=== PATIENT | male | born 1950 | race Caucasian/White ===

== ENCOUNTER 2024-08-25 08:14 | Emergency (ER) | payer MEDICARE, SELFPAY ==
[2024-08-25 08:17] VITALS: BP 124/71
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
[2024-08-25 09:41] LABS: % Basophils 0.3 % (0-2); % Eosinophils 0.4 % (0-6); % Immature Granulocytes 0.3 % (0-0.5); % Lymphocytes 10.3 % (20.5-51.1); % Monocytes 7.9 % (1.7-9.3); % Neutrophils 80.8 % (42.2-75.2); Absolute Lymphocytes 0.8 10^3/uL (1.2-3.4); Absolute Monocytes 0.6 10^3/uL (0.1-0.6); Absolute Neutrophils 6.4 10^3/uL (1.4-6.5); Hematocrit 36.9 % (39.0-52.0); Hemoglobin 11.6 g/dL (13.0-18.0); Mean Corp Hgb Conc. 31.4 g/dL (33.0-37.0); Mean Corpuscular Hgb 27.7 pg (27.0-31.0); Mean Corpuscular Volume 88.1 fL (80.0-94.0); Mean Platelet Volume 9.9 fL (7.4-10.4); Nucleated Red Blood Cells % 0 % (-); Platelet Count 169 10^3/uL (130-400); Red Blood Cell Count 4.19 10^6/uL (4.70-6.10); Red Cell Dist. Width 14.4 % (11.5-14.5)
[2024-08-25 09:48] LABS: ALT (SGPT) 21 U/L (0-50); AST (SGOT) 23 U/L (17-59); Alkaline Phosphatase 80 U/L (38-126); Blood Urea Nitrogen 18 mg/dl (9-20); Carbon Dioxide 28 mmol/L (22-30); Chloride 105 mmol/L (98-107); Glucose 102 mg/dl (70-99); Potassium 4.1 mmol/L (3.5-5.1); Sodium 142 mmol/L (135-145); Total Bilirubin 0.6 mg/dl (0.2-1.3); eGFR > 60.00
[2024-08-25 09:50] LABS: Alcohol None Detected
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
[2024-08-25 12:51] VITALS: BP 124/71
[2024-08-25 16:48] VITALS: BP 122/72
[2024-08-25 20:15] LABS: Urine Albumin Trace (Neg - Trace); Urine Bilirubin Negative (Negative); Urine Character Clear (Clear); Urine Color Yellow; Urine Glucose Negative (Negative); Urine Ketone Trace (Negative); Urine Leukocyte Negative (Negative); Urine Nitrite Negative (Negative); Urine Occult Blood Negative (Negative); Urine Specific Gravity 1.015 (<1.030); Urine Urobilinogen Negative (Neg - 1+); Urine pH 6.5 (5.0-9.0)
[2024-08-25 20:22] LABS: Amphetamines Negative (Negative); Barbiturates Negative (Negative); Benzodiazepines Positive (Negative); Buprenorphine Negative (Negative); Cocaine Negative (Negative); Marijuana Negative (Negative); Methadone Negative (Negative); Methamphetamines Negative (Negative); Opiates Negative (Negative); Phencyclidine Negative (Negative); Tricyclic Antidepressants Negative (Negative)
[2024-08-25 20:40] LABS: Fentanyl, Urine Negative (Negative)
[2024-08-26 04:40] VITALS: BP 114/67
[2024-08-26 07:41] VITALS: BP 143/88
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
== END 2024-08-26 14:23 ==
LOC: EMR 08:14
PROVIDERS: CONSULT PHYSICIAN Psychiatry & Neurology Psychiatry; EMERGENCY PHYSICIAN Emergency Medicine
DX: F29 Unspecified psychosis not due to a substance or known physiological condition (principal); F41.9 Anxiety disorder, unspecified; S30.1XXA Contusion of abdominal wall, initial encounter; S90.111A Contusion of right great toe without damage to nail, initial encounter; V47.5XXA Car driver injured in collision with fixed or stationary object in traffic accident, initial encounter; I11.0 Hypertensive heart disease with heart failure; I50.9 Heart failure, unspecified; J45.909 Unspecified asthma, uncomplicated; Z65.3 Problems related to other legal circumstances; F28 Other psychotic disorder not due to a substance or known physiological condition; Z79.899 Other long term (current) drug therapy
CPT/HCPCS: 99285; 70450; 71046; 72125; 73630; 80053; 80306; 80307; 81003; 82077; 85025

== ENCOUNTER 2024-10-14 10:01 | Emergency (ER) | payer MEDICARE, SELFPAY ==
[2024-10-14 10:12] VITALS: BP 115/48
--- NOTE | 2024-10-14 11:03 | ED.GENMED ---
History of Present Illness
General
Chief Complaint: Weakness
Source: patient
Exam Limitations: none
Time Seen by Provider: 10/14/24 10:59
Nursing documentation reviewed up to this point in time: agreed with
History of Present Illness
History of Present Illness:
74-year-old male with history of CHF, GERD, ADHD, anxiety/depression, defibrillator, presents with a thick packet of previous hospitalizations and lab reports saying 'I am not walking real good, I am stumbling' his legs are weak and he is concerned
about his arsenic level.
He has rec from March, June and August when he was admitted to the hospital, requesting that I look through all his records and inform him of what is abnormal, brief review of all the lab results reveal nothing needing urgent addressing. On
04/29/2024 his total urine arsenic level was 35 UG per liter and it should be less than 20.0 according to the lab report
On 06/23/2024 lab report he had a heavy metal panel again of his urine and the arsenic total was 14, normal is 0-9 UG/L, negative for lead or mercury.
Past History
Past History
ED Past Medical History: Asthma, CAD, CHF, [place], Psychiatric (Anxiety, depression, ADHD), Other (Encephalopathy) and Other (Behavior related cognitive impairment)
ED Past Surgical History: Cardiac (Pacemaker, defibrillator), Orthopedic (Left hip replacement) and Urological (Prostate cancer with radical prostatectomy)
Social History
Tobacco: Non-smoker
Alcohol: Occasional
Drug: None
Personal: Single
Living: alone
Employment: Other
Family History
Family History: Other
Review of Systems
Review of Systems
Allergies reviewed?: Yes
All Other Systems: ROS reviewed and negative except as documented in HPI and ROS
Constitutional: Denies fever or fatigue
Respiratory: Denies cough or trouble breathing
Cardiac: Denies chest pain
ABD/GI: Denies abdominal pain, nausea, vomiting, diarrhea or anorexia
: Denies dysuria, frequency or difficulty voiding
Musculoskeletal: Reports no symptoms
Skin: Reports no symptoms
Neurological: Reports weakness (legs feel weak); Denies dizzy, headache or numbness
Phy Exam
Physical Exam
Physical Exam:
GENERAL: No acute distress. A&Ox3.
CONSTITUTIONAL: Afebrile.
EYES: clear, conjunctivae normal
ENMT: moist mucus membranes, Pharynx nl
RESPIRATORY: Regular respirations, nonlabored, lungs clear.
CARDIOVASCULAR: Regular rate and rhythm, no murmurs, no rubs.
GI: Soft, nontender, normal BS
MUSCULOSKELETAL: Moves with ease. Well perfused. No edema. Patient ambulating mildly unsteadily with a shuffling gait.
SKIN: Warm, dry, pink
PSYCH: Normal mood and affect. Well kept, interactive, ruminating, obsessing over his pile of medical records and lab results.
NEUROLOGIC: Awake, alert and oriented. No focal neurological deficits. Bilateral lower extremity edema 5/5, strength equal throughout.
Course
Orders/Labs/Results
Orders:
Orders
10/14/24 11:39
Crisis Consult Urgent
Reason for Consult: paranoid, obsessing over lab results,
Comment: please speak with his friend who is with him
10/14/24 12:22
Complete Blood Count/With Diff Urgent
10/14/24 13:11
Comprehensive Metabolic Panel Urgent
Abnormal Lab Results
10/14/24 10/14/24
12:22 13:11
WBC 11.5 H 10^3/uL
(4.8-10.8)
RBC 4.16 L 10^6/uL
(4.70-6.10)
Hgb 11.4 L g/dL
(13.0-18.0)
Hct 34.5 L %
(39.0-52.0)
MPV 11.3 H fL
(7.4-10.4)
Abs Immat Gran (auto) 0.1 H 10^3/uL
(0-0.05)
Absolute Neuts (auto) 9.1 H 10^3/uL
(1.4-6.5)
Absolute Monos (auto) 1.1 H 10^3/uL
(0.1-0.6)
Neutrophils % 79.2 H %
(42.2-75.2)
Lymphocytes % 10.2 L %
(20.5-51.1)
Monocytes % 9.5 H %
(1.7-9.3)
BUN 32 H mg/dl
(9-20)
Creatinine 1.6 H mg/dL
(0.7-1.3)
Glucose 101 H mg/dl
(70-99)
10/14/24 12:22
10/14/24 13:11
Vital Signs
Initial and Last Documented VS:
Initial Vital Signs
Temp Pulse Resp BP Pulse Ox
99.2 F 85 20 115/48 99
10/14/24 10:12 10/14/24 10:12 10/14/24 10:12 10/14/24 10:12 10/14/24 10:12
Last Documented Vital Signs
Temp Pulse Resp BP Pulse Ox
98.9 F 82 17 123/71 99
10/14/24 14:51 10/14/24 14:51 10/14/24 14:51 10/14/24 14:51 10/14/24 14:51
MDM/Problems Addressed
MDM/Problems Addressed:
74-year-old male with history of CHF, GERD, ADHD, anxiety/depression, defibrillator, presents with a thick packet of previous hospitalizations and lab reports saying 'I am not walking real good, I am stumbling' his legs are weak and he is concerned
about his arsenic level.
He has rec from March, June and August when he was admitted to the hospital, requesting that I look through all his records and inform him of what is abnormal, brief review of all the lab results reveal nothing needing urgent addressing. On
04/29/2024 his total urine arsenic level was 35 UG per liter and it should be less than 20.0 according to the lab report
On 06/23/2024 lab report he had a heavy metal panel again of his urine and the arsenic total was 14, normal is 0-9 UG/L, negative for lead or mercury.
Afebrile, NAD
Young man with patient, allowing him to stay at his home states pt is constantly obsessing over his health, won't believe anything doctors tell him, he has been paranoid, he has restraint out for being violent with x-, he is frustrated that he
offered to help him, allowing him to stay with him (they used to be neighbors) and now does not know what to do with him.
Pt has no signs of acute arsenic poisoning, no paresthesias or neuropathy in hands or feet. No respiratory, GI or cardiac or respiratory symptoms. No skin lesions
CBC and CMP are unremarkable.
Pt reassured.
Crisis in and spoke with pt and his friend. Information on homelessness provided if needed
*Critical Care Note
Total Time (30-74mins, 75-104mins- exclusive of procedures): Not Applicable
ED Attending Note
-
Portions of this chart may have been created with voice recognition software.� Occasional wrong word or��sound alike� substitutions may have occurred due to the inherent limitations of voice recognition software.
Discharge Plan
Departure
Patient Disposition: Home (Routine Discharge)
Date of Disposition: 10/14/24
Time of Disposition: 14:49
Patient with high blood pressure during this ER visit?: No
Condition: Good
Discharge Problem:
Anxiety about health, Muscular deconditioning, Lower extremity weakness
Instructions: Active Range of Motion Exercises, Back and Hips, Active Range of Motion Exercises, Knees and Ankles, Strengthening Your Lower Body and Core, Arsenic Trioxide, Standing Balance Exercises, Beginner, Lower Extremity Exercises Seated,
Anxiety in adults - ED discharge instructions
Referrals:
NONE,* [Family Provider] -
Activity Restrictions/Additional Instructions:
As we discussed, the weakness in your leg is most likely from being deconditioned from your recent several hospitalizations. Increase your walking, I have provided you with exercises to do to strengthen your legs.
There is nothing worrisome in your workup here today.
You have no symptoms of arsenic poisoning, your liver function test is normal.
Interventions
Interventions:
*Risk Screen - Suicide Last Done: 10/14/24 10:12
*General Assessment Last Done: 10/14/24 10:12
*Neglect/Abuse Screening Last Done: 10/14/24 10:12
*ED COVID-19 Vaccine History Last Done: 10/14/24 12:00
*Nursing Disposition Last Done: 10/14/24 15:15
ED- Neurological Assessment Last Done: 10/14/24 12:00
ED- Pulmonary Assessment Last Done: 10/14/24 12:00
Discharge Date and Time
Discharge Date/Time: 10/14/24 15:15
Print Language: WOLOF
[2024-10-14 12:39] LABS: % Basophils 0.1 % (0-2); % Eosinophils 0.5 % (0-6); % Immature Granulocytes 0.5 % (0-0.5); % Lymphocytes 10.2 % (20.5-51.1); % Monocytes 9.5 % (1.7-9.3); % Neutrophils 79.2 % (42.2-75.2); Absolute Eosinophils 0.1 10^3/uL (0-0.7); Absolute Immature Granulocytes 0.1 10^3/uL (0-0.05); Absolute Lymphocytes 1.2 10^3/uL (1.2-3.4); Absolute Monocytes 1.1 10^3/uL (0.1-0.6); Absolute Neutrophils 9.1 10^3/uL (1.4-6.5); Hematocrit 34.5 % (39.0-52.0); Hemoglobin 11.4 g/dL (13.0-18.0); Mean Corpuscular Hgb 27.4 pg (27.0-31.0); Mean Corpuscular Volume 82.9 fL (80.0-94.0); Nucleated Red Blood Cells % 0 % (-); Red Blood Cell Count 4.16 10^6/uL (4.70-6.10); Red Cell Dist. Width 13.7 % (11.5-14.5); White Blood Cell Count 11.5 10^3/uL (4.8-10.8)
[2024-10-14 13:29] LABS: Mean Platelet Volume 11.3 fL (7.4-10.4)
[2024-10-14 13:30] LABS: Platelet Count 170 10^3/uL (130-400)
[2024-10-14 13:52] LABS: ALT (SGPT) 19 U/L (0-50); AST (SGOT) 23 U/L (17-59); Albumin 4.5 g/dl (3.5-5.0); Alkaline Phosphatase 96 U/L (38-126); Blood Urea Nitrogen 32 mg/dl (9-20); Calcium 9.4 mg/dl (8.4-10.2); Carbon Dioxide 23 mmol/L (22-30); Chloride 101 mmol/L (98-107); Glucose 101 mg/dl (70-99); Potassium 4.7 mmol/L (3.5-5.1); Sodium 137 mmol/L (135-145); Total Bilirubin 1.3 mg/dl (0.2-1.3); Total Protein 6.6 g/dl (6.3-8.2); eGFR 44.93
[2024-10-14 14:51] VITALS: BP 123/71
== END 2024-10-14 15:15 | disposition home or self-care (01) ==
LOC: EMR 10:01
PROVIDERS: Registered Nurse; EMERGENCY PHYSICIAN Emergency Medicine
DX: F41.9 Anxiety disorder, unspecified (principal); R53.1 Weakness; I50.9 Heart failure, unspecified; I25.10 Atherosclerotic heart disease of native coronary artery without angina pectoris; K21.9 Gastro-esophageal reflux disease without esophagitis; F90.9 Attention-deficit hyperactivity disorder, unspecified type; Z85.46 Personal history of malignant neoplasm of prostate; Z90.79 Acquired absence of other genital organ(s); Z95.0 Presence of cardiac pacemaker
CPT/HCPCS: 99283; 80053; 85025

== ENCOUNTER 2024-10-15 11:07 | Emergency (ER) | payer MEDICARE, SELFPAY ==
[2024-10-15 11:12] VITALS: BP 126/90
[2024-10-15 12:18] LABS: % Basophils 0.2 % (0-2); % Immature Granulocytes 0.4 % (0-0.5); % Lymphocytes 5.9 % (20.5-51.1); % Monocytes 6.4 % (1.7-9.3); % Neutrophils 87.1 % (42.2-75.2); Absolute Lymphocytes 0.6 10^3/uL (1.2-3.4); Absolute Monocytes 0.6 10^3/uL (0.1-0.6); Absolute Neutrophils 8.7 10^3/uL (1.4-6.5); Hematocrit 31.4 % (39.0-52.0); Hemoglobin 10.4 g/dL (13.0-18.0); Mean Corp Hgb Conc. 33.1 g/dL (33.0-37.0); Mean Corpuscular Hgb 27.6 pg (27.0-31.0); Mean Corpuscular Volume 83.3 fL (80.0-94.0); Mean Platelet Volume 10.1 fL (7.4-10.4); Nucleated Red Blood Cells % 0 % (-); Platelet Count 171 10^3/uL (130-400); Red Blood Cell Count 3.77 10^6/uL (4.70-6.10); Red Cell Dist. Width 13.6 % (11.5-14.5)
[2024-10-15 12:32] LABS: ALT (SGPT) 34 U/L (0-50); AST (SGOT) 36 U/L (17-59); Albumin 4.2 g/dl (3.5-5.0); Alkaline Phosphatase 131 U/L (38-126); Blood Urea Nitrogen 41 mg/dl (9-20); Carbon Dioxide 20 mmol/L (22-30); Chloride 101 mmol/L (98-107); Glucose 87 mg/dl (70-99); Potassium 4.8 mmol/L (3.5-5.1); Sodium 136 mmol/L (135-145); Total Bilirubin 1.1 mg/dl (0.2-1.3); Total Protein 6.2 g/dl (6.3-8.2); eGFR 39.01
[2024-10-15 13:01] LABS: Alcohol None Detected; TSH Reflex To Free T4 0.29 uIU/ml (0.47-4.68)
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
[2024-10-15 14:20] LABS: Free T4 1.34 ng/dl (0.78-2.19)
[2024-10-15] MEDS: ATIVAN 2 MG IM (14:30)
[2024-10-15] MEDS: HALDOL 5 MG IM (14:32)
[2024-10-15 15:10] LABS: Folate > 20.0 ng/ml (2.76-20); Vitamin B12 574 pg/ml (239-931)
[2024-10-15 15:40] LABS: Urine Albumin Trace (Neg - Trace); Urine Bilirubin Negative (Negative); Urine Character Clear (Clear); Urine Color Yellow; Urine Glucose Negative (Negative); Urine Ketone 3+ (Negative); Urine Leukocyte Negative (Negative); Urine Nitrite Negative (Negative); Urine Occult Blood Negative (Negative); Urine Specific Gravity 1.025 (<1.030); Urine Urobilinogen Negative (Neg - 1+)
[2024-10-15 16:18] LABS: Amphetamines Negative (Negative); Barbiturates Negative (Negative); Benzodiazepines Positive (Negative); Buprenorphine Negative (Negative); Cocaine Negative (Negative); Marijuana Negative (Negative); Methadone Negative (Negative); Methamphetamines Negative (Negative); Opiates Negative (Negative); Phencyclidine Negative (Negative); Tricyclic Antidepressants Negative (Negative)
[2024-10-15 16:29] LABS: Fentanyl, Urine Negative (Negative)
[2024-10-16 09:23] VITALS: BP 137/81
[2024-10-16] MEDS: ATIVAN 1 MG PO (09:23)
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
--- NOTE | 2024-10-16 11:55 | PHANOTE ---
med rec note- called patient pharmacy to obtain medication, patient has no ecw and pharmacy does not link to computer since it is through [place]. patient pharmacy last filled Plavix 75mg daily and metoprolol in january of 2024. no family for
patient
--- NOTE | 2024-10-16 12:02 | ED.CRISIS ---
ED Crisis Note
ED Crisis Note
Subjective:
Patient here on 302 for mehnaz with psychotic features.
Objective:
Resting comfortably in bed not in any distress. Vital signs stable.
Assessment/Plan:
74-year-old male here on a 302 for mehnaz with psychotic features. Psychiatry following. No placement today, plan for 303 hearing tomorrow. He was given some Ativan this morning for agitation.
[2024-10-16 17:01] VITALS: BP 117/68
[2024-10-17 09:09] VITALS: BP 122/73
--- NOTE | 2024-10-17 11:25 | CM ---
CM is providing assistance with transportation via Lyft to patient's home.
--- NOTE | 2024-10-17 12:22 | W.PN.UPDATE ---
Update Note
Progress Note Update
patient seen chart reviewed. a 303 commitment hearing was held today. the patient would not agree to hospitalization and he was released by the information assurance officer . i did discuss with him my recommendations for his medication which would be a mood
stabilizer/antipsychotic but he will return to his psychiatrist dr lloyd and go from there. he asked me how to evict his roommate. i told him i could not health counselor him on how to evict a tenant and he should contact legal support analyst
== END 2024-10-17 11:25 | disposition home or self-care (01) ==
LOC: EMR 11:07
PROVIDERS: EMERGENCY PHYSICIAN Emergency Medicine; OTHER PHYSICIAN Psychiatry & Neurology Psychiatry
DX: F30.2 Manic episode, severe with psychotic symptoms (principal); D64.9 Anemia, unspecified; N28.9 Disorder of kidney and ureter, unspecified; R45.6 Violent behavior; R47.81 Slurred speech; R45.89 Other symptoms and signs involving emotional state; V49.3XXA Car occupant (driver) (passenger) injured in unspecified nontraffic accident, initial encounter; Y92.009 Unspecified place in unspecified non-institutional (private) residence as the place of occurrence of the external cause; Z65.3 Problems related to other legal circumstances; I25.10 Atherosclerotic heart disease of native coronary artery without angina pectoris; I50.9 Heart failure, unspecified; F41.9 Anxiety disorder, unspecified; F32.A Depression, unspecified; F90.9 Attention-deficit hyperactivity disorder, unspecified type; J45.909 Unspecified asthma, uncomplicated; I25.2 Old myocardial infarction; Z95.0 Presence of cardiac pacemaker; Z85.46 Personal history of malignant neoplasm of prostate; Z96.642 Presence of left artificial hip joint; Z90.79 Acquired absence of other genital organ(s)
CPT/HCPCS: 99285; 96372 ×2; 80053; 80306; 80307; 81003; 82077; 82607; 82746; 84439; 84443; 85025

== ENCOUNTER 2025-01-25 16:05 | Emergency (ER) | payer MEDICARE, SELFPAY ==
[2025-01-25 16:23] VITALS: BP 98/65
--- NOTE | 2025-01-25 17:43 | ED.GENMED ---
History of Present Illness
General
Chief Complaint: Crisis Evaluation
Time Seen by Provider: 01/25/25 16:34
History of Present Illness
History of Present Illness:
74-year-old male with history of CHF, alcohol abuse, hypertension, hyperlipidemia presenting to the emergency department under 302, filled out by police. Patient was allegedly found in the street, uncooperative. Per 302, patient is unable to care
for himself, lives at home by himself. He has also been having some paranoia and hallucinations patient had allegedly been admitted to [facility] yesterday, admitted for failure to care for self, however signed out AGAINST MEDICAL
ADVICE. Per records at [facility] by [place], patient was admitted, with history that patient had fallen down the steps 4 days ago, history of frequent falls. Patient had CT of his head and C-spine that was negative for acute process. He
also negative chest x-ray. Patient has been complaining of rib pain, suffered some rib fractures several weeks ago after a fall. Patient also noted to have metacarpal fractures. Patient was accompanied by his neighbor who expressed concern for
his wellbeing. Patient at this time notes that he was laying in the street because he forgot his phone and was trying to get into his house, knocking on neighbors doors. He reports bilateral rib pain and left hand pain. Denies any additional
acute falls. Denies SI or HI
Past History
Past History
ED Past Medical History: Asthma, CAD, CHF, [place], Psychiatric (Anxiety, depression, ADHD), Other (Encephalopathy) and Other (Behavior related cognitive impairment)
ED Past Surgical History: Cardiac (Pacemaker, defibrillator), Orthopedic (Left hip replacement) and Urological (Prostate cancer with radical prostatectomy)
Social History
Tobacco: Non-smoker
Alcohol: Occasional
Drug: None
Personal: Single
Living: alone
Employment: Other
Family History
Family History: Other
Phy Exam
Physical Exam
Physical Exam:
General: Well-appearing, no clinical signs of dehydration, nontoxic and in no acute distress
HEENT: protecting airway
Neck: appears supple
CV: Normal heart rate, regular rhythm
Resp: No accessory muscle use, no increased work of breathing
Abd: No distention or tenderness on palpation
Extremities: Swelling and ecchymosis to the left hand with limited range of motion secondary to pain.
Neuro: alert, no focal neurologic deficit
: deferred
Rectal: deferred
Psych: Normal affect
Skin: Intact
Course
Orders/Labs/Results
Orders:
Orders
01/25/25 17:05
Urine Drug Abuse Screen Urgent
Date Specimen was Collected: 01/26/25
Time Specimen was Collected: 02:06
CR Chest - 2 Views Urgent
Comment:
Reason For Exam: rib pain
Hand, Left 3 View [CR Hand - Left Min 3 Views] Urgent
Comment:
Reason For Exam: swelling, bruising
Wrist, Left 3 Views CR [CR Wrist - Left Min 3 Views] Urgent
Comment:
Reason For Exam: pain
01/25/25 17:36
Crisis Consult Urgent
Reason for Consult: 302
01/25/25 18:59
One to One Observation - Suicide/Violent [1:1 Observation - Suicide/ Violent Behavior] As Directed
01/25/25 19:34
Alcohol Urgent
Complete Blood Count/With Diff Urgent
Comprehensive Metabolic Panel Urgent
01/26/25 02:10
Fentanyl, Urine Urgent
01/26/25 08:29
Splints/Slings/Crut- Treatment ONCE
Location: Left
Type of Splint: Ulnar Gutter
01/26/25 08:30
Acetaminophen [Tylenol] 1,000 mg PO NOW STA
Abnormal Lab Results
01/25/25 01/26/25
19:34 02:10
RBC 4.35 L 10^6/uL
(4.70-6.10)
Hgb 10.2 L g/dL
(13.0-18.0)
Hct 32.7 L %
(39.0-52.0)
MCV 75.2 L fL
(80.0-94.0)
MCH 23.4 L pg
(27.0-31.0)
MCHC 31.2 L g/dL
(33.0-37.0)
RDW 17.8 H %
(11.5-14.5)
MPV 10.9 H fL
(7.4-10.4)
Absolute Lymphs (auto) 1.1 L 10^3/uL
(1.2-3.4)
Neutrophils % 78.0 H %
(42.2-75.2)
Lymphocytes % 12.6 L %
(20.5-51.1)
BUN 33 H mg/dl
(9-20)
Creatinine 1.5 H mg/dL
(0.7-1.3)
Glucose 113 H mg/dl
(70-99)
Total Protein 5.8 L g/dl
(6.3-8.2)
U Benzodiazepines Scrn Positive H
(Negative)
U Marijuana (THC) Screen Positive H
(Negative)
01/25/25 19:34
01/25/25 19:34
Vital Signs
Initial and Last Documented VS:
Initial Vital Signs
Temp Pulse Resp BP Pulse Ox
97.8 F 88 18 98/65 98
01/25/25 16:23 01/25/25 16:23 01/25/25 16:23 01/25/25 16:23 01/25/25 16:23
Last Documented Vital Signs
Temp Pulse Resp BP Pulse Ox
97.8 F 81 16 98/65 97
01/25/25 16:23 01/26/25 02:00 01/26/25 02:00 01/25/25 16:23 01/26/25 02:00
MDM/Problems Addressed
MDM/Problems Addressed:
74-year-old male with history of CHF, alcohol abuse, hypertension, hyperlipidemia presenting to the emergency department under 302, filled out by police, for failure to care for self. Vitals significant for mild hypertension.
On exam patient is in no acute distress, denies any drug or alcohol abuse. Denies any new falls. Patient does have trauma to the left hand, otherwise no signs of acute trauma. Known fracture to the left hand. Will repeat imaging with inability
to see x-rays from [facility] at this time. Will also screen with laboratory analysis, alcohol level, urine drug screen. Will consult with crisis
17:40 - Per crisis, 302 was upheld, pending telepsych assessment
19:00 -x-ray does confirm fracture of the hand. Cannot place splint at this time given 302 status and risk to self. Chest x-ray without evidence of acute rib fracture, there is mention of some mild pulmonary edema. Patient without any acute
symptoms. Patient is refusing any blood work at this time or additional interventions
20:00 -labs unremarkable, show baseline hemoglobin and creatinine per [facility]. Chest x-ray again showing some mild pulmonary edema, however patient without any respiratory symptoms, no hypoxia or concern for CHF. Patient placement
*Critical Care Note
Total Time (30-74mins, 75-104mins- exclusive of procedures): Not Applicable
ED Attending Note
-
Portions of this chart may have been created with voice recognition software.� Occasional wrong word or��sound alike� substitutions may have occurred due to the inherent limitations of voice recognition software.
Discharge Plan
Departure
Patient Disposition: Psych Facility
Date of Disposition: 01/25/25
Time of Disposition: 22:24
Discharge Problem:
Paranoia, Unable to care for self
Prescriptions:
No Action
bupropion HCl [Wellbutrin SR] 200 mg Tablet Sustained-Release 12 Hr
200 mg PO BID
lamotrigine [Lamictal] 200 mg Tablet
200 mg PO DAILY
methylphenidate HCl [Ritalin] 20 mg Tablet
20 mg PO BID
methylphenidate HCl [Ritalin] 20 mg Tablet
20 mg PO DAILY@1600
Patient Comments:
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
pimozide 1 mg Tablet
1 mg PO UD
Rx Instructions:
start on 09/23/24 take half a tablet daily for 2 weeks then 1 tablet daily there after
folic acid 1 mg Tablet
1 mg PO DAILY
fluoxetine [Prozac] 20 mg Capsule
60 mg PO DAILY
cyanocobalamin (vitamin B-12) 2,500 mcg Tablet
2,500 mcg PO DAILY
Referrals:
UNKNOWN - PT DOES,NOT KNOW [Family Provider] -
Interventions
Interventions:
*Risk Screen - Suicide Last Done: 01/25/25 16:27
*General Assessment Last Done: 01/25/25 16:27
*Neglect/Abuse Screening Last Done: 01/25/25 17:54
*ED COVID-19 Vaccine History Last Done: 01/25/25 17:54
ED-Psychological Assessment Last Done: 01/25/25 17:55
Discharge Date and Time
Print Language: [place]
[2025-01-25 19:41] LABS: % Basophils 0.4 % (0-2); % Eosinophils 0.8 % (0-6); % Immature Granulocytes 0.5 % (0-0.5); % Lymphocytes 12.6 % (20.5-51.1); % Monocytes 7.7 % (1.7-9.3); Absolute Eosinophils 0.1 10^3/uL (0-0.7); Absolute Lymphocytes 1.1 10^3/uL (1.2-3.4); Absolute Monocytes 0.6 10^3/uL (0.1-0.6); Absolute Neutrophils 6.5 10^3/uL (1.4-6.5); Hematocrit 32.7 % (39.0-52.0); Hemoglobin 10.2 g/dL (13.0-18.0); Mean Corp Hgb Conc. 31.2 g/dL (33.0-37.0); Mean Corpuscular Hgb 23.4 pg (27.0-31.0); Mean Corpuscular Volume 75.2 fL (80.0-94.0); Mean Platelet Volume 10.9 fL (7.4-10.4); Nucleated Red Blood Cells % 0 % (-); Platelet Count 249 10^3/uL (130-400); Red Blood Cell Count 4.35 10^6/uL (4.70-6.10); Red Cell Dist. Width 17.8 % (11.5-14.5); White Blood Cell Count 8.3 10^3/uL (4.8-10.8)
[2025-01-25 19:54] LABS: ALT (SGPT) 31 U/L (0-50); AST (SGOT) 27 U/L (17-59); Albumin 3.9 g/dl (3.5-5.0); Alkaline Phosphatase 110 U/L (38-126); Blood Urea Nitrogen 33 mg/dl (9-20); Calcium 9.7 mg/dl (8.4-10.2); Carbon Dioxide 28 mmol/L (22-30); Chloride 104 mmol/L (98-107); Glucose 113 mg/dl (70-99); Potassium 4.4 mmol/L (3.5-5.1); Sodium 140 mmol/L (135-145); Total Bilirubin 0.7 mg/dl (0.2-1.3); Total Protein 5.8 g/dl (6.3-8.2); eGFR 48.55
[2025-01-25 19:56] LABS: Alcohol None Detected
[2025-01-26 02:33] LABS: Amphetamines Negative (Negative); Barbiturates Negative (Negative); Benzodiazepines Positive (Negative); Buprenorphine Negative (Negative); Cocaine Negative (Negative); Marijuana Positive (Negative); Methadone Negative (Negative); Methamphetamines Negative (Negative); Opiates Negative (Negative); Phencyclidine Negative (Negative); Tricyclic Antidepressants Negative (Negative)
[2025-01-26 03:22] LABS: Fentanyl, Urine Negative (Negative)
--- NOTE | 2025-01-26 07:30 | EDRN ---
Received patient in bed sleeping. Security watching patient.
--- NOTE | 2025-01-26 08:31 | ED.CRISIS ---
ED Crisis Note
ED Crisis Note
Subjective:
74-year-old male patient found lying in the street. Patient states he fell few days ago and got his hand caught in the railing. Was diagnosed with a hip fracture and patient reports he had a splint on but took it off. Presents for psychiatric
evaluation. Patient does report pain in the left hand
Objective:
Awake and alert. Left hand swelling noted. Normal distal cap refill. Patient was resting comfortably.
Assessment/Plan:
Awaits placement. Will place ulnar gutter splint. Tylenol for pain control.
[2025-01-26 08:42] VITALS: BP 133/86
[2025-01-26] MEDS: TYLENOL 1000 MG PO (08:43)
--- NOTE | 2025-01-26 09:29 | EDRN ---
Patient calm and cooperating with letting vital signs be taken and with left hand splint placement. Patient stated that he injured his hand when he fell and it got stuck in the railing a couple of days ago. Patient stated that he had a splint on it
from [facility] but 'has no idea what happened to it.'
[2025-01-26 11:33] VITALS: BMI 25.9
[2025-01-26 11:46] VITALS: BP 136/81
[2025-01-26 15:26] LABS: COVID-19 Antigen Negative (Negative)
[2025-01-26 21:32] VITALS: BP 134/92
[2025-01-27 06:31] VITALS: BP 132/78
--- NOTE | 2025-01-27 09:23 | PTCARENOTE ---
RN in room to introduce new nurse. Pt states he wants to get out of here. RN explained and educated pt on the crisis process. MD and Psych to see pt today. Pt given breakfast tray. Pt remains laying down in bed. No other complaints. Security
present in room. Will continue to monitor.
--- NOTE | 2025-01-27 09:34 | PHANOTE ---
Med History Note
Patient refused to participate in medication history interview. Medication list compiled from pharmacy fill data and PDMP data.
Medications left unconfirmed from previous admission, but no pharmacy fill data available for pimozide.
Most confirmed medications last filled 11/24/24 for a 30 day supply. Methylphenidate last filled 12/30/24 for 6 day supply 5 tabs/day.
--- NOTE | 2025-01-27 09:55 | ED.CRISIS ---
ED Crisis Note
ED Crisis Note
Subjective:
Patient cooperative for the most part, I did review his medications with pharmacy who called his pharmacist to get the most recent prescriptions, patient tells me he will not eat or drink or take any meds until he speaks to an heating and ventilating worker
Apparently psychiatric hospitals are looking at his case but have not accepted the patient due to prolonged QTc
Assessment/Plan:
Awaits placement. Psychiatry to see
I did order his meds after reviewing with pharmacy we will see if the patient will take them
--- NOTE | 2025-01-27 10:05 | PTCARENOTE ---
RN in room to give pt routine morning meds. Pt refused to take them. Pt states 'I will talk to my Doctor when I get out of here and take the meds he orders for me'. RN explained and educated pt that Pharmacy updated his meds according to what he
takes at home. Pt continues refusing to take meds here. Prachi made aware. Will continue to monitor.
[2025-01-27] MEDS: TYLENOL 650 MG PO (13:48)
[2025-01-27 13:54] VITALS: BP 140/91
[2025-01-27] MEDS: PROZAC 60 MG PO (14:13)
[2025-01-27] MEDS: LAMICTAL 25 MG PO (14:13)
--- NOTE | 2025-01-27 14:13 | PTCARENOTE ---
Pt called RN in room. Pt is now agreeable to take the morning meds that he refused. Meds given. See MAR. Will continue to monitor.
[2025-01-27] MEDS: ATIVAN 1 MG PO (15:43)
--- NOTE | 2025-01-27 16:18 | W.PN.UPDATE ---
Update Note
Progress Note Update
Pt seen, reviewed Crisis eval, Tele-psych eval. Pt on for inability to care for self, reportedly called police, was reportedly lying in the street, appeared to have diminished capacity and paranoid ideation. Pt apparently fell down stairs and
sustained fractures, left hand/wrist in splint. Pt sitting on side of bed, unkempt, disheveled. Pt unable to give rational explanation for events leading to admission. Per PDMP, pt being prescribed Ritalin 20 mg #150 per month by outpatient
psychiatrist Dr Rufino Wade. Inpatient psych referral complicated by medical status, was accepted by [facility] yesterday- on hold due to QTc >480.
Imp: Unspecified psychotic d/o; on
Rec: Inpatient psychiatric placement on .
continue psychotropic meds as ordered for now
Will follow
[2025-01-27] MEDS: KLONOPIN 1 MG PO (17:27)
[2025-01-27] MEDS: WELLBUTRIN SR (12 hour sustained release) 200 MG PO ×2 (17:27→23:02)
[2025-01-27] MEDS: RITALIN 20 MG PO (17:27)
[2025-01-27 20:56] VITALS: BP 132/81
[2025-01-28 08:30] VITALS: BP 132/89
[2025-01-28] MEDS: WELLBUTRIN SR (12 hour sustained release) 200 MG PO (08:50)
[2025-01-28] MEDS: LAMICTAL 25 MG PO (08:50)
[2025-01-28] MEDS: PROZAC 60 MG PO (08:50)
[2025-01-28] MEDS: ATIVAN 1 MG PO ×2 (12:54→20:09)
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
[2025-01-28 14:27] LABS: Magnesium 1.9 mg/dl (1.6-2.3)
--- NOTE | 2025-01-28 16:32 | W.PN.UPDATE ---
Update Note
Progress Note Update
Full note to follow
Patient ECG's reviewed
Continue current psychiatric medications.
He has an ICD in place-no ICD therapies per patient.
I have no objection for transfer to inpatient psychiatric facility from a Cardiology perspective today.
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
--- NOTE | 2025-01-28 17:20 | W.CARD.DEVCH ---
Cardiac Device Check
-
Device: Implanted Cardioverter-Defibrillator
Able Bodied Watchman: Medtronic
The patient's device was interrogated with assistance of the device advertising account representative followed by a complete physician review. The device had normal function. No abnormalities seen.
No arrhythmia. No shocks. Optivol trending up.
[2025-01-28] MEDS: TYLENOL 650 MG PO (18:43)
[2025-01-28] MEDS: WELLBUTRIN SR (12 hour sustained release) PO (20:41)
== END 2025-01-28 20:51 ==
LOC: EMR 16:05
PROVIDERS: Student in an Organized Health Care Education/Training Program; EMERGENCY PHYSICIAN Emergency Medicine; OTHER PHYSICIAN Psychiatry & Neurology Psychiatry
DX: F22 Delusional disorders (principal); Z74.1 Need for assistance with personal care; S62.307A Unspecified fracture of fifth metacarpal bone, left hand, initial encounter for closed fracture; S62.305A Unspecified fracture of fourth metacarpal bone, left hand, initial encounter for closed fracture; W10.9XXA Fall (on) (from) unspecified stairs and steps, initial encounter; Z63.8 Other specified problems related to primary support group; Z11.52 Encounter for screening for COVID-19; I50.9 Heart failure, unspecified; I11.0 Hypertensive heart disease with heart failure; E78.5 Hyperlipidemia, unspecified
CPT/HCPCS: 99285; 29125; 71046; 73110; 73130; 80053; 80306; 80307; 82077; 83735; 85025; 87811; 93005